=== PATIENT | male | born 1950 | race Hispanic/Latino ===

== ENCOUNTER 2021-01-31 12:39 | Emergency (ER) | payer MEDICARE ==
[~2021-01-31] VITALS: Ht 175.3 cm; Wt 78.2 kg
[2021-01-31] MEDS ORDERED: GLIP10TA PO (12:51)
[2021-01-31] MEDS ORDERED: AMLO1TAB24 PO (12:51)
[2021-01-31] MEDS ORDERED: GABA-282 PO (12:51)
[2021-01-31] MEDS ORDERED: ATOR80TA59 PO (12:51)
[2021-01-31] MEDS ORDERED: METF10004 PO (12:51)
[2021-01-31] MEDS ORDERED: ASPI1CHW3 PO (12:51)
[2021-01-31] MEDS ORDERED: NESI25TA PO (12:51)
[2021-01-31] MEDS ORDERED: JARD1TAB3 PO (12:51)
--- NOTE | 2021-01-31 16:29 | REP ---
INDICATION: foot pain just proximal to 3rd and 4th toes; ?trauma COMPARISON: None. TECHNIQUE: Four views right foot. FINDINGS: There is no evidence of acute fracture, dislocation, or intrinsic bone disease.No significant arthritic changes are visualized. IMPRESSION: No fracture or dislocation. <Electronically signed by Jonh Carrero > 01/31/21 [id number]
[2021-01-31 16:42] LABS: BASO # 0.1 10^3/uL (0.0-0.2); BASO % 0.9 % (0.0-1.0); EOS # 0.1 10^3/uL (0.0-0.5); EOS % 2.4 % (0.0-3.0); HEMOGLOBIN 12.9 g/dl (13.5-17.5); LYMPH # 2.3 10^3/uL (1.5-5.0); LYMPH % 39.8 % (24.0-44.0); MEAN CORPUSCULAR HEMOGLOBIN 31.1 pg (27.0-33.0); MEAN CORPUSCULAR HGB CONC 32.3 g/dl (32.0-36.5); MEAN CORPUSCULAR VOLUME 96.4 fl (80.0-96.0); MONO # 0.6 10^3/uL (0.0-0.8); MONO % 11.2 % (2.0-8.0); NEUTROPHILS # 2.6 10^3/uL (1.5-8.5); NEUTROPHILS % 45.5 % (36.0-66.0); PLATELET COUNT, AUTOMATED 168 10^3/uL (150-450); RED BLOOD COUNT 4.15 10^6/uL (4.30-6.10); WHITE BLOOD COUNT 5.7 10^3/uL (4.0-10.0)
[2021-01-31 17:20] LABS: CREATININE FOR GFR 1.28 MG/DL (0.70-1.30); GLOMERULAR FILTRATION RATE 59.5 (>49); POTASSIUM SERUM 4.4 MEQ/L (3.5-5.1)
[2021-01-31 17:21] LABS: CALCIUM LEVEL 9.1 MG/DL (8.8-10.2)
[2021-01-31] MEDS ORDERED: DOXY1CAP62 PO (17:35)
[2021-01-31] MEDS ORDERED: DOXYCYCLINE HYCLATE 100MG TABLET PO ONE (17:35)
[2021-01-31 18:11] VITALS: BP 137/75
== END 2021-01-31 18:13 | disposition home or self-care (01) ==
LOC: M ED 12:39
DX: L03.115 Cellulitis of right lower limb (principal); R23.4 Changes in skin texture; E11.9 Type 2 diabetes mellitus without complications; I10 Essential (primary) hypertension; E78.5 Hyperlipidemia, unspecified; F17.200 Nicotine dependence, unspecified, uncomplicated; Z88.0 Allergy status to penicillin; Z79.899 Other long term (current) drug therapy; Z79.84 Long term (current) use of oral hypoglycemic drugs; Z79.82 Long term (current) use of aspirin

== ENCOUNTER → 2021-05-12 | Outpatient (CLI) | payer MEDICARE, OTHER ==
[~2021-05-12] MED LIST: AMLO1TAB24 PO; ASPI1CHW3 PO; ATOR80TA59 PO; DOXY-443 PO; GABA-282 PO; GLIP10TA PO; JARD1TAB3 PO; METF10004 PO; NESI25TA PO; PRIL20TA2 PO
--- NOTE | 2021-05-12 16:15 | RADONC.CN ---
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 He is seen today for consideration of RT, having been deemed a high risk operative candidate due to CVA in 2019. Diagnosis/Treatment History Oncologic History [facility] PSA: 02/15/21 6.4 TRUS biopsy 04/03/21 Noble 3+4=7 3/12 cores positive IPSS 22 LONG 1 Interval History Here with his supportive . Has some residual right sided weakness and dysphagia from CVA. Is capable of most self-care needs. Does report intermittent incontinence of urine, spontaneous, not associated with activity. He has no BRBPR or diarrhea. He has complete ED. Appetite is good and weight is stable. Past Medical History: CVA DMII HPL HTN PAD Family History: No family cancer history Social History: Non-smoker Does not drink Allergies / Meds Allergies: Coded Allergies: Penicillins (Verified Allergy, Unknown, 01/31/21) Home Meds Reported Medications Omeprazole Magnesium (Prilosec Otc) 20 Mg Tablet.dr, 20 MG PO DAILY for 30 Days, #30 TAB 05/12/21 Amlodipine Besylate (Amlodipine Besylate) 5 Mg Tablet, 1 TAB PO DAILY for 30 Days, #30 TAB 01/31/21 Glipizide (Glipizide) 10 Mg Tablet, 1 TAB PO BID for 30 Days, #60 TAB 01/31/21 Alogliptin Benzoate (Nesina) 25 Mg Tablet, 1 TAB PO DAILY for 30 Days, #30 TAB 01/31/21 Gabapentin (Gabapentin) 300 Mg Capsule, 1 CAP PO DAILY for 30 Days, #30 CAP 01/31/21 Atorvastatin Calcium (Atorvastatin Calcium) 80 Mg Tablet, 1 TAB PO DAILY for 30 Days, #30 TAB 01/31/21 Metformin HCl (Metformin HCl) 1,000 Mg Tablet, 1 TAB PO BID for 30 Days, #60 TAB 01/31/21 Discontinued Reported Medications Aspirin (Aspirin) 81 Mg Tab.chew, 1 TAB PO DAILY for pain for 30 Days, #30 TAB 01/31/21 Empagliflozin (Jardiance) 25 Mg Tablet, 0.5 TAB PO DAILY for 30 Days, #30 TAB 01/31/21 Discontinued Scripts Doxycycline Monohydrate (Doxycycline Monohydrate) 100 Mg Capsule, 100 MG PO Q12H, #19 CAP Prov:RANDALL CALLE [employer] 01/31/21 Review of Systems Constitutional: Denies: Fatigue, Weight Loss Eyes: Denies: Pain HEENT: Denies: Head Aches Skin: Denies: Rash Cardiovascular: Denies: Chest Pain Gastrointestinal: Denies: Abdominal Pain, Hematochezia Genitourinary: Reports: Incontinence; Denies: Dysuria Musculoskeletal: Denies: Neck pain, Back pain Neurological: Reports: Weakness, Incoordination; Denies: Numbness Psych: Reports: Mood Normal Vital Signs Ht 71" Wt 188 lbs BMI 26.2 T 97.3 P 100 RR 18 BP 174/100 O2 96% Pain 0 Fatigue 0 General Exam: Alert, Cooperative, No Acute Distress Eye Exam: PERRLA, EOMI ENT EXAM: Atraumatic Neck Exam: Supple Chest Exam: Clear to auscultation Heart Exam: Rate Normal Abdomen Exam: Soft Male Exam: Normal Genital Exam, Normal Prostate, Normal Sphincter Tone Extremity Exam: Negative: Edema Skin Exam: Nl turgor and temperature Neuro Exam: Normal Speech, Cranial Nerves 3-12 NL; Negative: Normal Gait Psych Exam: Mental status NL Diagnostic and Laboratory Diagnostic Review Radiologic images, relevant labs and pathology reports were personally reviewed and discussed with Mr. Maloney. Assessment and Plan Impression Mr. Maloney is a 71 year old male with recently diagnosed favorable intermediate risk prostate cancer cT1c Noble 3+4=7 (3/12 cores+) PSA 6.4. He is seen today for consideration of RT, having been deemed a high risk operative candidate due to CVA in 2020. Stage Prostate cancer [id number] [place] 3+4=7 (3/12 cores+) PSA 6.4 stage IIB favorable intermediate risk Performance Status ECOG 2 Plan We had an extensive discussion with Mr. Maloney regarding the diagnosis at hand and available therapeutic options. He has low volume intermediate risk disease. He does have some residual stroke symptoms and also a moderate IPSS, including some intermittent urinary incontinence. I explained that RT will certainly not improve his incontinence, the expectation however after treatment is that urinary symptoms will return to near his current baseline. I discussed SBRT 36.25 Gy in 5 fractions, which is convenient and increasingly utilized, versus 70 Gy in 28 fractions, which has longer follow up and is well vetted in phase 3 RCTs. The toxicity profiles being similar, he prefers SBRT for convenience. I also discussed SpaceOAR/fiducial marker placement as an option for him, intended to reduce acute and late bowel toxicity risk. However he prefers to avoid procedures generally and would like to proceed without. I am comfortable with this. We discussed the logistics of receiving radiation therapy in detail including the need for a 1-time planning session. This can occur in the next week. We reviewed the side effects of radiation including fatigue, irritative voiding symptoms, diarrhea, and late rectal bleeding. After discussing the risks, benefits and alternatives to radiation therapy, Mr. Maloney was amenable to pursuing radiotherapy. All questions were answered to the patient's satisfaction. We instructed the patient that if there were any questions,concerns or changes in clinical status in the interim to contact us. Recommendations SBRT 36.25 Gy in 5 fractions Simulation in the coming week Billing Statement Total time of [45] minutes was spent preparing for the visit [3], obtaining HPI [7], examining the patient [2], reviewing diagnostic tests [4], discussing management options [20], coordinating care [2], and writing this note [7]. MARTINEZ CHAIREZ MD May 12, 2021 16:15
== END ==
LOC: M ONCR 13:30
PROVIDERS: ATTEND General Practice
DX: C61 Malignant neoplasm of prostate (principal); I69.921 Dysphasia following unspecified cerebrovascular disease; I69.998 Other sequelae following unspecified cerebrovascular disease; R32 Unspecified urinary incontinence; Z88.0 Allergy status to penicillin; Z79.82 Long term (current) use of aspirin; Z79.84 Long term (current) use of oral hypoglycemic drugs; Z79.899 Other long term (current) drug therapy

== ENCOUNTER 2021-06-06 14:18 | Outpatient (RCR) | payer OTHER ==
[~2021-06-06 14:18] MED LIST changes: +FLOM0.4C39 PO
[2021-09-08] MEDS ORDERED: OXYB5TAB10 PO (09:24)
== END 2021-06-13 ==
LOC: M ONCR 14:18
PROVIDERS: ATTEND General Practice
DX: C61 Malignant neoplasm of prostate (principal); R30.0 Dysuria

== ENCOUNTER → 2021-09-08 | Outpatient (CLI) | payer OTHER ==
[~2021-09-08] MED LIST changes: +OXYB5TAB10 PO
[2021-09-08 11:43] LABS: APPEARANCE, URINE MANUAL CLEAR (CLEAR); BILIRUBIN, URINE MANUAL NEGATIVE (NEGATIVE); COLOR, URINE MANUAL YELLOW (YELLOW); GLUCOSE, URINE (UA) MANUAL 4+(1000 MG/DL) mg/dL (NEGATIVE); KETONE, URINE MANUAL NEGATIVE (NEGATIVE); LEUKOCYTE ESTERASE, URINE MAN NEGATIVE (NEGATIVE); NITRITE, URINE MANUAL NEGATIVE (NEGATIVE); PROTEIN, URINE MANUAL 3+ mg/dL (NEGATIVE); SPECIFIC GRAVITY,URINE MANUAL 1.015 (1.002-1.035); UROBILINOGEN, URINE MANUAL NORMAL (NORMAL)
[2021-09-08 11:44] LABS: BLOOD URINE MANUAL TRACE (NEGATIVE)
[2021-09-08 11:55] LABS: BACTERIA, URINE NONE SEEN; HYALINE CAST, URINE NONE SEEN /lpf (0-1); RBC, URINE 0-1 /hpf (0-3); SQUAMOUS EPITHELIAL CELL URINE NONE SEEN /hpf (SMALL AMT); WBC, URINE NONE SEEN /hpf (0-3)
== END ==
LOC: M ONCR 08:47
PROVIDERS: ATTEND General Practice
DX: C61 Malignant neoplasm of prostate (principal); R32 Unspecified urinary incontinence; R35.0 Frequency of micturition; R35.1 Nocturia; Z79.84 Long term (current) use of oral hypoglycemic drugs; Z79.899 Other long term (current) drug therapy; Z88.0 Allergy status to penicillin; Z92.3 Personal history of irradiation
CPT/HCPCS: 36415; 81000; 87086; G0463

== ENCOUNTER → 2021-12-05 | Outpatient (CLI) | payer OTHER | LOC: M ONCR 11:27 | PROVIDERS: ATTEND General Practice | DX: C61 Malignant neoplasm of prostate (principal); Z88.0 Allergy status to penicillin; Z92.3 Personal history of irradiation | CPT/HCPCS: 36415; 84153; G0463 ==

== ENCOUNTER → 2022-06-05 | Outpatient (CLI) | payer OTHER ==
[~2022-06-05] MED LIST changes: +TAMS1CAP17 PO
== END ==
LOC: M ONCR 11:00
PROVIDERS: ATTEND Radiology Radiation Oncology
DX: C61 Malignant neoplasm of prostate (principal); R33.9 Retention of urine, unspecified; R39.15 Urgency of urination; Z79.84 Long term (current) use of oral hypoglycemic drugs; Z79.899 Other long term (current) drug therapy; Z88.0 Allergy status to penicillin; Z92.3 Personal history of irradiation
CPT/HCPCS: 36415; 84153; G0463

== ENCOUNTER 2022-10-29 15:45 | Inpatient (IN) | payer OTHER ==
[~2022-10-29] VITALS: Ht 177.8 cm; Wt 84.8 kg
[~2022-10-29 15:45] MED LIST changes: +ASPI-161 PO; +ASPI-655 PO; -ASPI1CHW3 PO; +LANTINJ4 SC; +LISI40TA4 PO; +METF-838 PO; +METO1TAB32 PO; +METO1TAB33 PO; +OMEP1CAP73 PO; +VITMTA PO
[2022-10-29 17:52] LABS: BASO # 0.1 10^3/uL (0.0-0.2); BASO % 0.7 % (0.0-1.0); EOS # 0.1 10^3/uL (0.0-0.5); EOS % 1.8 % (0.0-3.0); HEMATOCRIT 34.8 % (42.0-52.0); LYMPH # 2.2 10^3/uL (1.5-5.0); MEAN CORPUSCULAR HEMOGLOBIN 28.4 pg (27.0-33.0); MEAN CORPUSCULAR HGB CONC 31.6 g/dl (32.0-36.5); MEAN CORPUSCULAR VOLUME 89.7 fl (80.0-96.0); MONO # 0.6 10^3/uL (0.0-0.8); MONO % 8.8 % (2.0-8.0); NEUTROPHILS # 4.2 10^3/uL (1.5-8.5); NEUTROPHILS % 58.1 % (36.0-66.0); PLATELET COUNT, AUTOMATED 252 10^3/uL (150-450); RED BLOOD COUNT 3.88 10^6/uL (4.30-6.10); WHITE BLOOD COUNT 7.2 10^3/uL (4.0-10.0)
[2022-10-29 18:05] LABS: INR 1.15; PARTIAL THROMBOPLASTIN TIME 29.5 SECONDS (24.8-34.2); PROTHROMBIN TIME 14.9 SECONDS (12.5-14.5)
[2022-10-29 18:21] LABS: LIPASE 64 U/L (12-53)
[2022-10-29 18:23] LABS: ALBUMIN 3.2 G/DL (3.2-5.2); ALKALINE PHOSPHATASE 112 U/L (46-116); ALT/SGPT 37 U/L (7.0-40); AST/SGOT 27 U/L (<34); BILIRUBIN,DIRECT 0.1 MG/DL (<0.4); BILIRUBIN,TOTAL 0.3 MG/DL (0.3-1.2); BLOOD UREA NITROGEN 17 MG/DL (9-23); CALCIUM LEVEL 8.7 MG/DL (8.3-10.6); CARBON DIOXIDE LEVEL 23 MMOL/L (20-31); CHLORIDE LEVEL 102 MMOL/L (98-107); CREATININE FOR GFR 1.42 MG/DL (0.70-1.30); GLOMERULAR FILTRATION RATE 52.5 (>42); GLUCOSE, FASTING 308 MG/DL (74-106); POTASSIUM SERUM 4.6 MMOL/L (3.5-5.1); SODIUM LEVEL 134 MMOL/L (136-145); TOTAL PROTEIN 7.5 G/DL (5.7-8.2)
[2022-10-29 19:56] LABS: BASO # 0.1 10^3/uL (0.0-0.2); BASO % 0.9 % (0.0-1.0); EOS # 0.1 10^3/uL (0.0-0.5); EOS % 1.6 % (0.0-3.0); HEMATOCRIT 33.1 % (42.0-52.0); HEMOGLOBIN 10.7 g/dl (13.5-17.5); LYMPH # 2.1 10^3/uL (1.5-5.0); MEAN CORPUSCULAR HEMOGLOBIN 28.7 pg (27.0-33.0); MEAN CORPUSCULAR HGB CONC 32.3 g/dl (32.0-36.5); MEAN CORPUSCULAR VOLUME 88.7 fl (80.0-96.0); MONO # 0.8 10^3/uL (0.0-0.8); MONO % 9.3 % (2.0-8.0); NEUTROPHILS % 61.1 % (36.0-66.0); PLATELET COUNT, AUTOMATED 254 10^3/uL (150-450); RED BLOOD COUNT 3.73 10^6/uL (4.30-6.10); WHITE BLOOD COUNT 8.2 10^3/uL (4.0-10.0)
[2022-10-29] MEDS ORDERED: NS 1,000 ML IV ONE (20:10)
[2022-10-29 20:14] LABS: ETHYL ALCOHOL (ETHANOL) < 0.003 % (0.000-0.010)
[2022-10-29] MEDS ORDERED: ISOVUE-370 76% 100ML VIAL As Ordered ONE (20:18)
[2022-10-29 20:35] LABS: RSV AMPLIFICATION NEGATIVE (NEGATIVE)
[2022-10-29] MEDS ORDERED: DEXTROSE 50% 50ML SYRINGE IV PRN (23:40)
[2022-10-29] MEDS ORDERED: GLUCAGON INJ 1MG VIAL SC PRN (23:40)
[2022-10-29] MEDS ORDERED: GLUCOSE 4GM CHEW TABLET PO PRN (23:40)
[2022-10-29 23:51] VITALS: BP 120/83
[2022-10-30] VITALS (9 sets, daily range): BP systolic 102–137; BP diastolic 58–83
[2022-10-30] MEDS: INSULIN LISPRO (NovoLOG) PER UNIT SC SCH ×5 (00:11→23:07)
[2022-10-30] MEDS ORDERED: FUROSEMIDE 20MG/2ML VIAL IV ONE (02:00)
[2022-10-30] MEDS ORDERED: ALEV220T22 PO (02:04)
[2022-10-30] MEDS ORDERED: GLIP10TA6 PO (02:04)
[2022-10-30] MEDS ORDERED: HOME MED LIST COMPLETE! XX SCH (02:05)
[2022-10-30] MEDS ORDERED: FUROSEMIDE 20MG/2ML VIAL As Ordered ONE (02:11)
[2022-10-30] MEDS: LR 1,000 ML IV SCH ×3 (03:19→11:34)
[2022-10-30 06:44] LABS: HEMATOCRIT 29.6 % (42.0-52.0); HEMOGLOBIN 9.6 g/dl (13.5-17.5); MEAN CORPUSCULAR HEMOGLOBIN 28.7 pg (27.0-33.0); MEAN CORPUSCULAR HGB CONC 32.4 g/dl (32.0-36.5); MEAN CORPUSCULAR VOLUME 88.6 fl (80.0-96.0); PLATELET COUNT, AUTOMATED 194 10^3/uL (150-450); RED BLOOD COUNT 3.34 10^6/uL (4.30-6.10); WHITE BLOOD COUNT 9.5 10^3/uL (4.0-10.0)
[2022-10-30 07:20] LABS: CALCIUM LEVEL 7.6 MG/DL (8.3-10.6); CREATININE FOR GFR 1.65 MG/DL (0.70-1.30); GLOMERULAR FILTRATION RATE 44.1 (>42); MAGNESIUM LEVEL 1.7 MG/DL (1.8-2.4)
[2022-10-30] MEDS: lisinopriL 40MG TAB PO SCH (09:00)
[2022-10-30] MEDS ORDERED: LEVEMIR (INSULIN DETEMIR) 1 UNITS/0.01ML SC SCH (09:00)
[2022-10-30] MEDS: PANTOPRAZOLE 40MG VIAL IV SCH (09:21)
[2022-10-30] MEDS: METOPROLOL SUCC (TopROL XL) 50MG **XL** TAB PO SCH (09:22)
[2022-10-30] MEDS: ATORVASTATIN 20 MG TAB PO SCH (09:22)
[2022-10-30] MEDS: LEVEMIR (INSULIN DETEMIR) 1 UNITS/0.01ML SC SCH (09:22)
[2022-10-30] MEDS: TAMSULOSIN 0.4 MG CAP PO SCH (09:22)
[2022-10-30] MEDS: GABAPENTIN 300 MG CAP PO SCH (09:22)
[2022-10-30 12:20] LABS: HEMATOCRIT 25.3 % (42.0-52.0); HEMOGLOBIN 8.1 g/dl (13.5-17.5); MEAN CORPUSCULAR HEMOGLOBIN 27.8 pg (27.0-33.0); MEAN CORPUSCULAR VOLUME 86.9 fl (80.0-96.0); PLATELET COUNT, AUTOMATED 171 10^3/uL (150-450); RED BLOOD COUNT 2.91 10^6/uL (4.30-6.10)
[2022-10-30] MEDS ORDERED: FLEET ENEMA PR ONE (12:45)
[2022-10-30 14:55] LABS: CREATININE FOR GFR 1.63 MG/DL (0.70-1.30); GLOMERULAR FILTRATION RATE 44.8 (>42)
[2022-10-30] MEDS ORDERED: propofoL 200 MG/20 ML VIAL As Ordered ONE (15:12)
[2022-10-30] MEDS ORDERED: LIDOCAINE 2% 100MG/5ML SDV (FOR ANES.) As Ordered ONE (15:12)
[2022-10-30] MEDS ORDERED: INSULIN LISPRO (NovoLOG) PER UNIT SC SCH (17:30)
[2022-10-30 18:20] LABS: HEMATOCRIT 24.1 % (42.0-52.0); HEMOGLOBIN 7.6 g/dl (13.5-17.5); MEAN CORPUSCULAR HEMOGLOBIN 28.3 pg (27.0-33.0); MEAN CORPUSCULAR HGB CONC 31.5 g/dl (32.0-36.5); MEAN CORPUSCULAR VOLUME 89.6 fl (80.0-96.0); PLATELET COUNT, AUTOMATED 162 10^3/uL (150-450); RED BLOOD COUNT 2.69 10^6/uL (4.30-6.10); WHITE BLOOD COUNT 7.8 10^3/uL (4.0-10.0)
[2022-10-31] VITALS (14 sets, daily range): BP systolic 99–149; BP diastolic 7–87
[2022-10-31 00:03] LABS: HEMATOCRIT 21.9 % (42.0-52.0); MEAN CORPUSCULAR HEMOGLOBIN 27.8 pg (27.0-33.0); MEAN CORPUSCULAR HGB CONC 31.5 g/dl (32.0-36.5); MEAN CORPUSCULAR VOLUME 88.3 fl (80.0-96.0); PLATELET COUNT, AUTOMATED 151 10^3/uL (150-450); RED BLOOD COUNT 2.48 10^6/uL (4.30-6.10)
[2022-10-31 00:06] LABS: HEMOGLOBIN 6.9 g/dl (13.5-17.5)
[2022-10-31 07:39] LABS: MEAN CORPUSCULAR HGB CONC 32.4 g/dl (32.0-36.5); MEAN CORPUSCULAR VOLUME 89.5 fl (80.0-96.0); PLATELET COUNT, AUTOMATED 114 10^3/uL (150-450); RED BLOOD COUNT 3.14 10^6/uL (4.30-6.10); WHITE BLOOD COUNT 6.1 10^3/uL (4.0-10.0)
[2022-10-31 07:40] LABS: HEMATOCRIT 28.1 % (42.0-52.0); HEMOGLOBIN 9.1 g/dl (13.5-17.5)
[2022-10-31 08:14] LABS: CALCIUM LEVEL 7.5 MG/DL (8.3-10.6); CREATININE FOR GFR 1.37 MG/DL (0.70-1.30); GLOMERULAR FILTRATION RATE 54.7 (>42); MAGNESIUM LEVEL 1.8 MG/DL (1.8-2.4)
[2022-10-31] MEDS: PANTOPRAZOLE 40MG VIAL IV SCH (09:17)
[2022-10-31] MEDS: GABAPENTIN 300 MG CAP PO SCH (09:18)
[2022-10-31] MEDS: INSULIN LISPRO (NovoLOG) PER UNIT SC SCH ×4 (09:18→21:00)
[2022-10-31] MEDS: ATORVASTATIN 20 MG TAB PO SCH (09:18)
[2022-10-31] MEDS: lisinopriL 40MG TAB PO SCH (09:18)
[2022-10-31] MEDS: TAMSULOSIN 0.4 MG CAP PO SCH (09:18)
[2022-10-31] MEDS: LEVEMIR (INSULIN DETEMIR) 1 UNITS/0.01ML SC SCH (09:18)
[2022-10-31] MEDS: METOPROLOL SUCC (TopROL XL) 50MG **XL** TAB PO SCH (09:19)
[2022-10-31 19:22] LABS: HEMATOCRIT 26.7 % (42.0-52.0); HEMOGLOBIN 8.7 g/dl (13.5-17.5)
[2022-11-01 06:01] VITALS: BP 129/71
[2022-11-01 06:46] LABS: HEMATOCRIT 26.7 % (42.0-52.0); HEMOGLOBIN 8.6 g/dl (13.5-17.5); MEAN CORPUSCULAR HEMOGLOBIN 28.7 pg (27.0-33.0); MEAN CORPUSCULAR HGB CONC 32.2 g/dl (32.0-36.5); PLATELET COUNT, AUTOMATED 144 10^3/uL (150-450); WHITE BLOOD COUNT 5.7 10^3/uL (4.0-10.0)
[2022-11-01 07:38] LABS: ALBUMIN 2.5 G/DL (3.2-5.2); ALKALINE PHOSPHATASE 70 U/L (46-116); ALT/SGPT 22 U/L (7.0-40); AST/SGOT 22 U/L (<34); BILIRUBIN,TOTAL 0.4 MG/DL (0.3-1.2); BLOOD UREA NITROGEN 14 MG/DL (9-23); CALCIUM LEVEL 7.7 MG/DL (8.3-10.6); CARBON DIOXIDE LEVEL 24 MMOL/L (20-31); CHLORIDE LEVEL 108 MMOL/L (98-107); CREATININE FOR GFR 1.23 MG/DL (0.70-1.30); GLOMERULAR FILTRATION RATE > 60.0 (>42); GLUCOSE, FASTING 232 MG/DL (74-106); MAGNESIUM LEVEL 1.8 MG/DL (1.8-2.4); POTASSIUM SERUM 4.3 MMOL/L (3.5-5.1); SODIUM LEVEL 137 MMOL/L (136-145); TOTAL PROTEIN 5.6 G/DL (5.7-8.2)
[2022-11-01] MEDS: PANTOPRAZOLE 40MG VIAL IV SCH (09:13)
[2022-11-01] MEDS: INSULIN LISPRO (NovoLOG) PER UNIT SC SCH (09:14)
[2022-11-01] MEDS: LEVEMIR (INSULIN DETEMIR) 1 UNITS/0.01ML SC SCH (09:14)
[2022-11-01] MEDS: GABAPENTIN 300 MG CAP PO SCH (09:16)
[2022-11-01] MEDS: ATORVASTATIN 20 MG TAB PO SCH (09:16)
[2022-11-01] MEDS: TAMSULOSIN 0.4 MG CAP PO SCH (09:16)
[2022-11-01 09:17] VITALS: BP 127/88
[2022-11-01] MEDS: lisinopriL 40MG TAB PO SCH (09:17)
[2022-11-01] MEDS: METOPROLOL SUCC (TopROL XL) 50MG **XL** TAB PO SCH (09:17)
== END 2022-11-01 11:30 | disposition home or self-care (01) | DRG 394 ==
LOC: M ED 15:45 → M ED INP 23:36 → M 4MAIN 10-30 01:08 → M MS4PR 10-30 15:15 → M MSPAV 10-30 20:54
PROVIDERS: ADMIT Internal Medicine; ATTEND Internal Medicine
PROC: 30233N1 Transfusion of Nonautologous Red Blood Cells into Peripheral Vein, Percutaneous Approach (ICD-10-PCS; principal; 2022-10-29)
PROC: 0DJD8ZZ Inspection of Lower Intestinal Tract, Via Natural or Artificial Opening Endoscopic (ICD-10-PCS; 2022-10-30)
DX: K62.6 Ulcer of anus and rectum (principal); K62.5 Hemorrhage of anus and rectum; D62 Acute posthemorrhagic anemia; E11.9 Type 2 diabetes mellitus without complications; I10 Essential (primary) hypertension; E78.5 Hyperlipidemia, unspecified; K29.70 Gastritis, unspecified, without bleeding; N40.0 Benign prostatic hyperplasia without lower urinary tract symptoms; Z92.21 Personal history of antineoplastic chemotherapy; Z92.3 Personal history of irradiation; Z80.42 Family history of malignant neoplasm of prostate; Z86.73 Personal history of transient ischemic attack (TIA), and cerebral infarction without residual deficits; Z88.0 Allergy status to penicillin; Z79.899 Other long term (current) drug therapy; Z79.82 Long term (current) use of aspirin; Z79.4 Long term (current) use of insulin

== ENCOUNTER → 2022-12-05 | Outpatient (CLI) | payer MEDICARE, OTHER ==
[~2022-12-05] MED LIST changes: +ALEV220T22 PO; +GLIP10TA6 PO; +MYRB50TA PO
== END ==
LOC: M ONCR 10:07
PROVIDERS: ATTEND General Practice
DX: C61 Malignant neoplasm of prostate (principal); K62.7 Radiation proctitis; Z71.2 Person consulting for explanation of examination or test findings; Z79.1 Long term (current) use of non-steroidal anti-inflammatories (NSAID); Z79.84 Long term (current) use of oral hypoglycemic drugs; Z79.4 Long term (current) use of insulin; Z79.82 Long term (current) use of aspirin; Z79.899 Other long term (current) drug therapy; Z88.0 Allergy status to penicillin; Z88.1 Allergy status to other antibiotic agents; Z92.3 Personal history of irradiation
CPT/HCPCS: 36415; 84153; G0463

== ENCOUNTER → 2023-06-05 | Outpatient (CLI) | payer MEDICARE, OTHER ==
[~2023-06-05] MED LIST changes: +MYLAN SC; -OXYB5TAB10 PO; +OXYB5TAB11 PO
== END ==
LOC: M ONCR 09:14
PROVIDERS: ATTEND General Practice
DX: C61 Malignant neoplasm of prostate (principal); Z71.2 Person consulting for explanation of examination or test findings; Z92.3 Personal history of irradiation; Z79.82 Long term (current) use of aspirin; Z79.84 Long term (current) use of oral hypoglycemic drugs; Z79.899 Other long term (current) drug therapy; Z88.0 Allergy status to penicillin; Z88.1 Allergy status to other antibiotic agents
CPT/HCPCS: 36415; 84153; G0463

== ENCOUNTER → 2023-06-20 | Outpatient (CLI) | payer OTHER | LOC: M RAD 10:23 | PROVIDERS: ATTEND Internal Medicine | DX: N18.30 Chronic kidney disease, stage 3 unspecified (principal); N40.0 Benign prostatic hyperplasia without lower urinary tract symptoms ==

== ENCOUNTER → 2024-06-09 | Outpatient (CLI) | payer OTHER ==
[~2024-06-09] MED LIST changes: -ASPI-161 PO; +ASPI-615 PO; +DOXY-441 PO; -DOXY-443 PO; +GABA-1172 PO; -GABA-282 PO; +GLIP10TA15 PO; -GLIP10TA6 PO; -OXYB5TAB11 PO; +OXYB5TAB14 PO
== END ==
LOC: M ONCR 09:32
PROVIDERS: ATTEND General Practice
DX: C61 Malignant neoplasm of prostate (principal); Z92.3 Personal history of irradiation; Z88.0 Allergy status to penicillin; Z88.1 Allergy status to other antibiotic agents; Z79.82 Long term (current) use of aspirin; Z79.84 Long term (current) use of oral hypoglycemic drugs; Z79.85 Long-term (current) use of injectable non-insulin antidiabetic drugs; Z79.899 Other long term (current) drug therapy; K59.2 Neurogenic bowel, not elsewhere classified; N31.9 Neuromuscular dysfunction of bladder, unspecified
CPT/HCPCS: 36415; 84153; G0463

== ENCOUNTER → 2025-06-09 | Outpatient (CLI) | payer OTHER ==
[~2025-06-09] MED LIST changes: -ASPI-655 PO; +ASPI-737 PO; -FLOM0.4C39 PO; +LISI40TA10 PO; -LISI40TA4 PO; +TAMS-18 PO
== END ==
LOC: M ONCR 09:09
PROVIDERS: ATTEND General Practice
DX: C61 Malignant neoplasm of prostate (principal); Z92.3 Personal history of irradiation; Z88.0 Allergy status to penicillin; Z88.1 Allergy status to other antibiotic agents; Z79.82 Long term (current) use of aspirin; Z79.84 Long term (current) use of oral hypoglycemic drugs; Z79.899 Other long term (current) drug therapy
CPT/HCPCS: 36415; 84153; G0463